=== PATIENT | male | born 1990 | race Caucasian/White ===

== ENCOUNTER 2019-08-15 12:08 | Emergency (ER) | payer SELFPAY ==
[~2019-08-15] VITALS: Ht 180.3 cm; Wt 65.9 kg
[2019-08-15 13:34] VITALS: BP 146/94
== END 2019-08-15 13:47 | disposition home or self-care (01) ==
LOC: EMS 12:13
DX: R07.89 Other chest pain (principal); R00.2 Palpitations; J45.909 Unspecified asthma, uncomplicated; F12.90 Cannabis use, unspecified, uncomplicated; F11.90 Opioid use, unspecified, uncomplicated
CPT/HCPCS: 93005